=== PATIENT | male | born 1985 | race Caucasian/White ===

== ENCOUNTER 2023-09-06 17:21 | Emergency (ER) | payer SELFPAY ==
[2023-09-06 17:21] VITALS: BMI 31.0
[2023-09-06 17:22] VITALS: BP 134/97
--- NOTE | 2023-09-06 17:53 | ED.GENMED ---
History of Present Illness
General
Chief Complaint: Allergic Reaction
Source: patient
Time Seen by Provider: 09/06/23 17:47
History of Present Illness
History of Present Illness:
30-year-old male presents to the emergency room for evaluation after being stung by several 'yellow jackets'. Patient works in the [employer] industry and while at a customer's house came across a nest. He was stung in the right arm, shoulder and back.
He initially thought he was fine but began having a sensation of numbness around his lips. He also had a sensation of some swelling in his throat. Patient's is an ER nurse and gave him 50 of Benadryl drove him to the hospital. He physic his
symptoms have not progressed since then.
Phy Exam
Physical Exam
Physical Exam:
General: Awake, Alert, Oriented X3. No acute distress.
Vitals: unremarkable
Head: Atraumatic
Eyes: Pupils equal, EOMI
Throat: Airway intact, no exudates, no stridor
Neck: Trachea midline
Lungs: Clear and equal b/l
Heart: Regular rate, no murmurs
Abd: Soft, Nontender, No pulsatile mass
Neuro: Nonfocal
Skin: Warm, dry, no urticaria
Extremities: pulses equal b/l, no edema
Course
Orders/Labs/Results
Orders:
Orders
09/06/23 17:52
Dexamethasone Sod Phosphate [Decadron] 10 mg IV NOW STA
Famotidine [Pepcid] 20 mg IV NOW STA
Vital Signs
Initial and Last Documented VS:
Initial Vital Signs
Temp Pulse Resp BP Pulse Ox
98.3 F 75 16 134/97 98
09/06/23 17:22 09/06/23 17:22 09/06/23 17:22 09/06/23 17:22 09/06/23 17:22
Last Documented Vital Signs
Temp Pulse Resp BP Pulse Ox
98.3 F 55 18 127/78 97
09/06/23 17:22 09/06/23 19:00 09/06/23 19:00 09/06/23 19:00 09/06/23 19:00
MDM/Problems Addressed
Differential Diagnosis Includes:
Effect from hymenoptera venom, allergic reaction
MDM/Problems Addressed:
Patient arrives today after several stings. He took Benadryl at home. No angioedema noted here in the emergency room. No urticaria noted. Perhaps the Benadryl that he took at home has already had effect. Patient was observed for an extended
period time without any worsening symptoms. Patient stable for discharge home.
*Critical Care Note
Total Time (30-74mins, 75-104mins- exclusive of procedures): Not Applicable
ED Attending Note
-
Portions of this chart may have been created with voice recognition software.� Occasional wrong word or��sound alike� substitutions may have occurred due to the inherent limitations of voice recognition software.
Discharge Plan
Departure
Patient Disposition: Home (Routine Discharge)
Date of Disposition: 09/06/23
Time of Disposition: 19:13
Patient with high blood pressure during this ER visit?: No
Condition: Good
Discharge Problem:
Hymenoptera reaction, Hymenoptera sting
Instructions: Allergic Reaction ED, Insect Bites and Stings ED
Prescriptions:
New
epinephrine [EpiPen 2-Reilly] 0.3 mg/0.3 mL auto-injector
0.3 mg IM Q5-15M PRN (Reason: anaphylaxis) Qty: 2 0RF
Referrals:
Frankie Meek MD [Family Provider] -
Activity Restrictions/Additional Instructions:
You can take 25 mg of Benadryl every 6 hours as needed for itching or allergy type symptoms. We gave you a dose of a steroid which will last for the next couple days and so we do not need to give you a prescription for further steroids.
Interventions
Interventions:
*Risk Screen - Suicide Last Done: 09/06/23 17:22
*General Assessment Last Done: 09/06/23 17:22
*Neglect/Abuse Screening Last Done: 09/06/23 17:22
ED- Fall Risk Assessment Last Done: 09/06/23 17:42
*ED COVID-19 Vaccine History Last Done: 09/06/23 19:45
*Nursing Disposition Last Done: 09/06/23 19:45
ED- Cardiac Assessment Last Done: 09/06/23 17:42
ED- Pulmonary Assessment Last Done: 09/06/23 17:42
ED-Skin Assessment Last Done: 09/06/23 17:42
Discharge Date and Time
Discharge Date/Time: 09/06/23 19:47
Print Language: POLISH
[2023-09-06] MEDS: DECADRON 10 MG IV (17:54)
[2023-09-06] MEDS: PEPCID 20 MG IV (17:56)
[2023-09-06 18:00] VITALS: BP 137/78
[2023-09-06 19:00] VITALS: BP 127/78
== END 2023-09-06 19:47 | disposition home or self-care (01) ==
LOC: EMR 17:21
PROVIDERS: EMERGENCY PHYSICIAN Emergency Medicine; FAMILY PHYSICIAN Family Medicine
DX: T63.461A Toxic effect of venom of wasps, accidental (unintentional), initial encounter (principal); Y99.0 Civilian activity done for income or pay
CPT/HCPCS: 99284; 96374; 96375